=== PATIENT | male | born 2000 ===

== ENCOUNTER 2023-03-08 21:32 | Emergency (ER) | payer OTHER ==
[~2023-03-08] VITALS: Ht 167.6 cm; Wt 108.7 kg
[2023-03-08 22:07] VITALS: TEMP 98.1; O2SAT 98
[2023-03-08 23:26] VITALS: BP 134/110; PULSE 103; RESP 18
[2023-03-08] MEDS ORDERED: IBUPROFEN 600MG TABLET PO STA (23:26)
[2023-03-09] MEDS ORDERED: NAPR-681 PO (02:14)
[2023-03-09] MEDS ORDERED: CIPR1DRO2 EACH EAR (02:14)
== END 2023-03-09 03:36 | disposition home or self-care (01) ==
LOC: ER 21:32
DX: T70.0XXA Otitic barotrauma, initial encounter (principal); H60.93 Unspecified otitis externa, bilateral; X58.XXXA Exposure to other specified factors, initial encounter
CPT/HCPCS: 99283